=== PATIENT | female | born 1990 | race American Indian/Alaskan Native ===

== ENCOUNTER 2018-09-21 15:00 | Outpatient (CLI) | payer OTHER | END 2018-09-21 17:59 | disposition home or self-care (01) | LOC: NST 15:00 | DX: Z34.83 Encounter for supervision of other normal pregnancy, third trimester (principal) ==

== ENCOUNTER 2018-11-28 12:00 | Inpatient (IN) | payer OTHER ==
[~2018-11-28] VITALS: Ht 167.6 cm; Wt 65.8 kg
[2018-11-29] MEDS ORDERED: OBSTETRIX DHA1 EACH PO (10:57)
== END 2018-12-01 10:18 | disposition home or self-care (01) | DRG 807 ==
LOC: OB/GYN 12:00 → SURG-SUITE 14:19 → LDR 14:19 → SURG-SUITE 20:37
PROVIDERS: ADMIT Obstetrics & Gynecology
PROC: 10D07Z6 Extraction of Products of Conception, Vacuum, Via Natural or Artificial Opening (ICD-10-PCS; principal; 2018-11-28)
PROC: 0W8NXZZ Division of Female Perineum, External Approach (ICD-10-PCS; 2018-11-28)
PROC: 4A1HXCZ Monitoring of Products of Conception, Cardiac Rate, External Approach (ICD-10-PCS; 2018-11-28)
DX: O66.5 Attempted application of vacuum extractor and forceps (principal); Z37.0 Single live birth; Z3A.37 37 weeks gestation of pregnancy

== ENCOUNTER 2021-01-27 08:36 | Outpatient (CLI) | payer OTHER ==
[~2021-01-27 08:36] MED LIST: OBSTETRIX DHA1 EACH PO
== END 2021-01-27 08:50 | disposition home or self-care (01) ==
LOC: SONOGRAMA 08:36
PROVIDERS: ATTEND Obstetrics & Gynecology Maternal & Fetal Medicine
DX: N60.11 Diffuse cystic mastopathy of right breast (principal); N64.89 Other specified disorders of breast